=== PATIENT | male | born 1955 | race Two or more races ===

== ENCOUNTER 2025-07-04 17:40 | Emergency (ER) | payer MEDICARE, BC ==
[~2025-07-04] VITALS: Ht 175.3 cm; Wt 85.4 kg
[2025-07-04 17:42] VITALS: BP 163/73; PULSE 75; RESP 14; TEMP 97.8; O2SAT 96
--- NOTE | 2025-07-04 18:08 | ED.PDOC ---
History of Present Illness HPI Comments This is a 70 years old male with past medical history of kidney stones, hyperlipidemia presented to the ED with a chief complaint of intractable abdominal pain and nausea since yesterday prior to this visit. The patient stated that abdominal pain which is diffuse crushing pain, 06/23, radiates to the back, aggravated with eating food without any relieving factors and associated with nausea. He denies any fever, chills, vomiting, bloody stool, altered bowel habit, recent traveling or any positive sick contact. Chief Complaint: Abdominal Pain Time Seen by MD: 17:45 Allergies: Coded Allergies: Clindamycin (Verified Allergy, Unknown, 07/04/25) Sulfamethoxazole w/Trimethoprim (Verified Allergy, Unknown, 07/04/25) Information Source: Patient Mode of Arrival: Ambulatory Severity: Moderate Timing: Hours Duration: Since onset Prehospital treatment: None Past Medical History PAST MEDICAL HISTORY: High Lipids, Kidney Stones Surgical History: Appendectomy Surgical History (Other): Prostatectomy Family History Family History: Reviewed,noncontributory to illness Social History Smoker: Non-Smoker Alcohol: Denies ETOH Use Drugs: Denies Drug Use Lives In: Home Constitutional: denies: chills, diaphoresis, fatigue, fever, malaise, sweats, weakness, others EENTM: denies: blurred vision, double vision, ear bleeding, ear discharge, ear drainage, ear pain, ear ringing, eye pain, eye redness, hearing loss, mouth pain, mouth swelling, nasal discharge, nose bleeding, nose congestion, nose pain, photophobia, tearing, throat pain, throat swelling, voice changes, others Respiratory: denies: cough, hemoptysis, orthopnea, SOB at rest, shortness of breath, SOB with excertion, stridor, wheezing, others Cardiovascular: denies: chest pain, dizzy spells, diaphoresis, Dyspnea on exertion, edema, irregular heart beat, left arm pain, lightheadedness, p alpitations, PND, syncope, others Gastrointestinal: reports: abdominal pain, nausea; denies: abdomen distended, blood streaked bowels, constipated, diarrhea, dysphagia, difficulty swallowing, hematemesis, melena, poor appetite, poor fluid intake, rectal bleeding, rectal pain, vomiting, others Genitourinary: denies: burning, dysuria, flank pain, frequency, hematuria, incontinence, penile discharge, penile sore, pain, testicle pain, testicle swelling, urgency, others Neurological: denies: dizziness, fainting, headache, left sided numbness, left sided weakness, numbness, paresthesia, pre-existing deficit, right sided numbness, right sided weakness, seizure, speech problems, tingling, tremors, weakness, others Musculoskeletal: denies: back pain, gout, joint pain, joint swelling, muscle pain, muscle stiffness, neck pain, others Integumetry: denies: bruises, change in color, change in hair/nails, dryness, laceration, lesions, lumps, rash, wounds, others Allergic/Immunocompromised: denies: Difficulty Healing, Frequent Infections, Hives, Itching, others Hematologic/Lymphatic: denies: anemia, blood clots, easy bleeding, easy bruising, swollen glands, others Endocrine: denies: excessive hunger, excessive sweating, excessive thirst, excessive urination, flushing, intolerance to cold, intolerance to heat, une xplained weight gain, unexplained weight loss, others Psychiatric: denies: anxiety, bipolar disorder, depression, hopeless, panic disorder, schizophrenia, sleepless, suicidal, others Physical Exam General Appearance: Normal HEENT: Normal ENT Inspection, Pharynx Normal, TMs Normal Neck: Full Range of Motion, Non-Tender, Normal, Normal Inspection Respiratory: Chest Non-Tender, Lungs Clear, No Accessory Muscle Use, No Respiratory Distress, Normal Breath Sounds Cardiovascular: No Edema, No JVD, No Murmur, No Gallop, Normal Peripheral Pulses, Regular Rate/Rhythm Breast Exam: Deferred Gastrointestinal: Diffuse, Guarding, No Organomegaly, No Pulsatile Mass, Normal Bowel Sounds, Tenderness Genitalia: Deferred Pelvic: Deferred Rectal: Deferred Extremities: No calf tenderness, Normal capillary refill, Normal inspection, Normal range of motion, Non-tender, No pedal edema Neurologic: Alert, 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 Was a procedure done?: No Differential Dx Considerations may include: Gastroenteritis, Kidney stone, bilateral kidney lesion, Biliary colic, cholelithiasis, acute cholecystitis, gastritis, PUD, pancreatitis, diverticulitis, enteritis X-Ray, Labs, Meds, VS Vital Signs Date Time Temp Pulse Resp B/P (MAP) Pulse Ox O2 Delivery O2 Flow Rate FiO2 07/04/25 17:42 97.8 75 14 163/73 96 97.8 Lab Test 07/04/25 19:01 Range/Units White Blood Count 9.8 4.4-10.8 10^3/uL Red Blood Count 4.98 4.5-5.90 10^6/uL Hemoglobin 15.0 13.5-17.5 g/dL Hematocrit 44.8 41.0-53.0 % Mean Corpuscular Volume 89.9 80.0-100.0 fL Mean Corpuscular Hemoglobin 30.1 28.0-32.0 pg Mean Corpuscular Hemoglobin Concent 33.4 32.0-36.0 g/dL Red Cell Distribution Width 14.6 H 11.8-14.3 % Platelet Count 310 140-450 10^3/uL Mean Platelet Volume 7.7 6.9-10.8 fL Neutrophils (%) (Auto) 55.4 37.0-80.0 % Lymphocytes (%) (Auto) 32.2 10.0-50.0 % Monocytes (%) (Auto) 8.0 0.0-12.0 % Eosinophils (%) (Auto) 2.9 0.0-7.0 % Basophils (%) (Auto) 1.5 0.0-2.0 % Neutrophils # (Auto) 5.4 1.6-8.6 10 ^3/uL Lymphocytes # (Auto) 3.2 0.4-5.4 10 ^3/uL Monocytes # (Auto) 0.8 0-1.3 10 ^3/uL Eosinophils # (Auto) 0.3 0-0.8 10 ^3/uL Basophils # (Auto) 0.1 0-0.2 10 ^3/uL Nucleated Red Blood Cells 0.1 % Sodium Level 137 136-145 mmol/L Potassium Level 4.4 3.5-5.1 mmol/L Chloride Level 103 98-107 mmol/L Carbon Dioxide Level 26 20-31 mmol/L Anion Gap 8 5-15 Blood Urea Nitrogen 9 9-23 mg/dL Creatinine 1.19 0.700-1.30 mg/dL Glomerular Filtration Rate Calc 66 >90 mL/min BUN/Creatinine Ratio 7.6 L 10.0-20.0 Serum Glucose 85 74-106 mg/dL Calcium Level 9.4 8.7-10.4 mg/dL Total Bilirubin 0.8 0.2-1.0 mg/dL Aspartate Amino Transferase (AST) 28 13-40 U/L Alanine Aminotransferase (ALT) 24 7-40 U/L Alkaline Phosphatase 62 46-116 U/L Total Protein 7.3 5.7-8.2 g/dL Albumin 4.5 3.2-4.8 g/dL Lipase 52 12-53 U/L X-Ray, Labs, Meds, VS Comment Exam: CT CT AB PEL WO CON-NO ORAL OR IV History: Intractable abdominal pain Comparison Study: None TECHNIQUE: Multidetector CT of the abdomen and pelvis was performed from lung bases to pubic symphysis. Imaging was performed without IV contrast. Axial, coronal, and sagittal multiplanar reformats were obtained from the axial data set by the technologist. RADIATION DOSE: CTDI vol 13.0 mGy. DLP 679.9 mGy.cm Findings: Limited evaluation of the solid organs in the absence of IV contrast. Liver: Unremarkable. Spleen: Unremarkable. Pancreas: Unremarkable. Gallbladder: Unremarkable. Adrenals: Unremarkable Kidneys: 2.9 cm indeterminate right renal lesion. 12 mm indeterminate left renal lesion. Scattered renal cysts. Bilateral nonobstructing nephrolithiasis. No hydronephrosis. Pelvic Viscera: Unremarkable. Vasculature: Mild atherosclerotic aortoiliac calcifications. Retroperitoneum: Shotty retroperitoneal nodes. No ascites. Bowel: No bowel obstruction. Musculoskeletal: Degenerative changes of the lumbar spine. Levoscoliosis. Soft tissues: Unremarkable Lungs: Basilar atelectasis/scarring. Impression: 1. No acute abdominopelvic abnormality identified. 2. 2.9 cm indeterminate right renal lesion. 12 mm indeterminate left renal lesion. Comparison with any prior outside imaging would be helpful in assessing acuity and interval change. If no prior imaging is available, further evaluation with a nonemergent MRI of the abdomen is suggested. 3. Additional findings as detailed. Images Reviewed?: Images reviewed and evaluated by me Time of 1ST Reevaluation: 20:16 Reevaluation 1ST: Improved Patient Education/Counseling: Diagnosis, Treatment Family Education/Counseling: Diagnosis, Treatment Comments This is a 70-year-old male with past medical history of nephrolithiasis, bilateral kidney lesion presented the ED with a chief complaint of diffuse abdominal pain and nausea since yesterday. CBC and BMP was on were unremarkable Lipase is normal CT abdomen pelvis without contrast demonstrated bilateral indeterminate renal lesions, unchanged from the previous one done in 12/26/24, nonobstructing renal calculus and no acute intra-abdominal pathology. The patient was advised to continue Protonix 40 mg p.o. daily for 1 month and follow up with PCP and Urology for further evaluation and management. SEPSIS Sepsis Screen Date sepsis recognized/suspect: Jul 04, 2025 Time Sepsis recognized/suspect: 1741 Recent Procedure: No On Antibiotic Therapy: No Respiratory Rate >20: No Heart Rate >90: No Temp<36 C (96.8 F) or >38.3 C: No SBP <90 or MAP <65 mmHG: No New Acute Mental Status Change: No Is the patient on CPAP, BIPAP,: No Physician Orders Ct Ab Pel Wo Con-No Oral Or Iv (07/04/25 18:39) Urinalysis (07/04/25 18:39) Vital Signs Date Time Temp Pulse Resp B/P (MAP) Pulse Ox O2 Delivery O2 Flow Rate FiO2 07/04/25 17:42 97.8 75 14 163/73 96 97.8 Laboratory Tests Test 07/04/25 19:01 White Blood Count 9.8 10^3/uL (4.4-10.8) Departure 1 Departure Time of Disposition: 20:32 Impression: Primary Impression: Gastroenteritis Disposition: 01 HOME / SELF CARE / HOMELESS Condition: Fair Critical Care Note Critical Care Time?: No Stability Stability form required: No I personally scribed for SAMIR JOSHI MD ([email or web address]) on 07/05/25 at 02:34. Electronically submitted by Rojas Bradley ([email or web address]). AYSE ELLIOTT RESIDENT Jul 04, 2025 18:08 SAMIR JOSHI MD Jul 05, 2025 02:34
[2025-07-04 19:27] LABS: Hematocrit 44.8 % (41.0-53.0); Hemoglobin 15.0 g/dL (13.5-17.5); Mean Corpuscular Hemoglobin 30.1 pg (28.0-32.0); Mean Corpuscular Volume 89.9 fL (80.0-100.0); Nucleated Red Blood Cells % 0.1 %
[2025-07-04 19:36] LABS: Alanine Aminotransferase 24 U/L (7-40); Albumin 4.5 g/dL (3.2-4.8); Alkaline Phosphatase 62 U/L (46-116); Anion Gap 8 (5-15); BUN/Creatinine Ratio 7.6 (10.0-20.0); Bilirubin, Total 0.8 mg/dL (0.2-1.0); Calcium 9.4 mg/dL (8.7-10.4); Carbon Dioxide 26 mmol/L (20-31); Chloride 103 mmol/L (98-107); Glucose 85 mg/dL (74-106); Lipase 52 U/L (12-53); Potassium 4.4 mmol/L (3.5-5.1); Sodium 137 mmol/L (136-145); Total Protein 7.3 g/dL (5.7-8.2)
--- NOTE | 2025-07-04 19:40 | DVH ---
Exam: CT CT AB PEL WO CON-NO ORAL OR IV History: Intractable abdominal pain Comparison Study: None TECHNIQUE: Multidetector CT of the abdomen and pelvis was performed from lung bases to pubic symphysi s. Imaging was performed without IV contrast. Axial, coronal, and sagittal multiplanar reformats were obtained from the axial data set by the technologist. RADIATION DOSE: CTDI vol 13.0 mGy. DLP 679.9 mGy.cm Findings: Limited evaluation of the solid organs in the absence of IV contrast. Liver: Unremarkable. Spleen: Unremarkable. Pancreas: Unremarkable. Gallbladder: Unremarkable. Adrenals: Unremarkable Kidneys: 2.9 cm indeterminate right renal lesion. 12 mm indeterminate left renal lesion. Scattered re nal cysts. Bilateral nonobstructing nephrolithiasis. No hydronephrosis. Pelvic Viscera: Unremarkable. Vasculature: Mild atherosclerotic aortoiliac calcifications. Retroperitoneum: Shotty retroperitoneal nodes. No ascites. Bowel: No bowel obstruction. Musculoskeletal: Degenerative changes of the lumbar spine. Levoscoliosis. Soft tissues: Unremarkable Lungs: Basilar atelectasis/scarring. Impression: 1. No acute abdominopelvic abnormality identified. 2. 2.9 cm indeterminate right renal lesion. 12 mm indeterminate left renal lesion. Comparison with a ny prior outside imaging would be helpful in assessing acuity and interval change. If no prior imagi ng is available, further evaluation with a nonemergent MRI of the abdomen is suggested. 3. Additional findings as detailed.
[2025-07-04 19:42] LABS: Blood Urea Nitrogen 9 mg/dL (9-23)
== END 2025-07-05 03:16 | disposition home or self-care (01) ==
LOC: EEVIPCON 17:40 → ER 17:40
DX: K52.9 Noninfective gastroenteritis and colitis, unspecified (principal); Z90.49 Acquired absence of other specified parts of digestive tract; Z88.2 Allergy status to sulfonamides; Z88.1 Allergy status to other antibiotic agents; Z79.899 Other long term (current) drug therapy
CPT/HCPCS: 36415; 74176; 80053; 83690; 85025